=== PATIENT | female | born 1955 | race Caucasian/White ===

== ENCOUNTER 2017-01-30 10:45 | Emergency (ER) | payer BC ==
[2017-01-30] MEDS ORDERED: SODIUM CHLORIDE 1,000 ML IV STA (10:49)
[2017-01-30] MEDS ORDERED: ONDANSETRON 4 MG/2 ML VIAL IVPUSH ONE (10:49)
--- NOTE | 2017-01-30 10:55 | PDOC ---
History of Present Illness - General Chief Complaint: Nausea/Vomiting Stated Complaint: n/v/d headache Time Seen by Provider: 01/30/17 10:48 History Source: Patient Exam Limitations: No Limitations - History of Present Illness Initial Comments: 01/30/17 10:51 61 y/o female with headache and vomiting today. Recently diagnosed with Farfan's Palsy 1 1/2 weeks ago and placed on Neurontin. Today increase rigth sided headache and vomiting. Mild diarrhea. No fall or trauma. The burning sensation on right side got better from the Neurontin. Has seen Neurologist Dr. Cook and also treated fro tic bite in September with antibiotics. No neck pain, back pain or weakness. No blurred vision or speech change. Timing/Duration: constant Severity: mild Associated Symptoms: reports: headaches, nausea/vomiting NIH Stroke Scale - Initial Evaluation Level of consciousness: Alert Ask patient the month and their age: Answers both correctly Ask patient to open & close eyes; make fist and let go: Obeys both correctly Best gaze (horizontal eye movement): Normal Visual field testing: No visual field loss Facial paresis (Show teeth/raise eyebrows/close eyes tight): Normal symmetrical movement Motor Function: Left Arm: Normal Motor Function: Right Arm: Normal (extends arm 90 (or 45) degrees for 10 seconds without drift Motor Function: Left Leg: Normal (extends leg 30 degrees for 5 seconds without drift) Motor Function: Right Leg: Normal (extends leg 30 degrees for 5 seconds without drift) Limb Ataxia: No ataxia Sensory(Use pinprick test arms,legs,trunk,face/side to side): Normal Best language (Describe picture, name items, read sentences): No Aphasia Dysarthria (read several words): Normal articulation Extinction and Inattention: No abnormality - Total Score NIH Stroke Scale Score: 0 Past History - Past Medical History Allergies/Adverse Reactions: Allergies Allergy/AdvReac Type Severity Reaction Status Date / Time latex Allergy Itching Verified 01/30/17 11:02 papaya [Papaya] Allergy Itching Verified 01/30/17 11:02 Penicillins Allergy Rash Verified 01/30/17 11:02 sulfamethoxazole Allergy Hives Verified 01/30/17 11:02 [From Bactrim] trimethoprim [From Bactrim] Allergy Hives Verified 01/30/17 11:02 Home Medications: Ambulatory Orders Aspirin [Aspirin EC] 81 mg PO DAILY 03/18/15 Levothyroxine [Synthroid -] 75 mcg PO DAILY 03/18/15 Cholecalciferol (Vitamin D3) [Vitamin D3 -] 1,000 unit PO DAILY 09/23/15 [place]-3/Dha/Epa/Fish Oil [Fish Oil 500 mg Softgel] 1 each PO DAILY 09/23/15 Cyanocobalamin [Vitamin B12 -] 100 mcg PO DAILY 01/30/17 Gabapentin [Neurontin -] 200 mg PO HS 01/30/17 Hyoscyamine Sulfate 0.125 mg PO TID 01/30/17 Pravastatin Sodium [Pravachol (Nf)] 20 mg PO HS 01/30/17 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) Hypercholesterolemia: Yes Thyroid Disease: Yes - Surgical History Abdominal Surgery: Yes (UMBILICAL HERNIA) - Suicide/Smoking/Psychosocial Hx Smoking Status: No Smoking History: Never smoked Number of Cigarettes Smoked Daily: 0 Hx Alcohol Use: Yes (RARE) Drug/Substance Use Hx: No Substance Use Type: None Review of Systems - Review of Systems Able to Perform ROS?: Yes Is the patient limited [place] proficient: No Constitutional: No: Chills, Fever HEENTM: No: Blurred Vision Respiratory: No: Shortness of Breath Cardiac (ROS): No: Chest Pain, Irregular Heart Rate ABD/GI: Yes: Diarrhea, Nausea, Vomiting : No: Burning, Dysuria Musculoskeletal: No: Back Pain, Joint Pain, Neck Pain Integumentary: No: Pruritus, Rash Neurological: Yes: Headache. No: Numbness, Paresthesia, Ataxia All Other Systems: Reviewed and Negative *Physical Exam - Physical Exam General Appearance: Yes: Nourished, Appropriately Dressed, Mild Distress. No: Apparent Distress HEENT: positive: EOMI, FADY, Normal ENT Inspection, Normal Voice, Pharynx Normal Neck: positive: Trachea midline, Normal Thyroid, Supple. negative: Tender, Rigid Respiratory/Chest: positive: Lungs Clear, Normal Breath Sounds. negative: Chest Tender, Respiratory Distress Cardiovascular: positive: Regular Rhythm, Regular Rate, S1, S2. negative: Edema , JVD, Murmur Vascular Pulses: Femoral (R): 4+, Femoral (L): 4+, Carotid (R): 4+, Carotid (L) : 4+, Dorsalis-Pedis (R): 4+, Doralis-Pedis (L): 4+ Gastrointestinal/Abdominal: positive: Normal Bowel Sounds, Flat, Soft. negative : Tender, Organomegaly, Pulsatile Mass Lymphatic: negative: Adenopathy, Tenderness, Other Musculoskeletal: positive: Normal Inspection. negative: CVA Tenderness Extremity: positive: Normal Capillary Refill, Normal Inspection, Normal Range of Motion, Tender. negative: Swelling Integumentary: positive: Normal Color, Dry, Warm Neurologic: positive: machine tool mechanic II-XII NML intact, Fully Oriented, Alert, Normal Mood/ Affect (strength 5+/5 b/l in UE adn LE, no focal deficits noted), Normal Response, Motor Strength 5/5 ED Treatment Course - LABORATORY CBC & Chemistry Diagram: 01/30/17 11:22 01/30/17 11:22 - ADDITIONAL ORDERS Additional order review: 01/30/17 10:55 Patient with recent diagnosis by Neurologist with Farfan's Palsy, now with right sided headache and vomiting. May be related to Neurontin, however pt never had a CT head done as per patient, will obtain labs, CT head and place on fluids. 01/30/17 12:55 Pt is feeling much better, headache has resolved and no vomiting Labs normal. CT head: negative for bleed. Attempted to call patient's neurologist Dr. Gabino Prasad, no return call. Will have pt follow up, if worsen return to ER 01/30/17 12:57 Advised pt to hold off on taking Neurontin, if having possible side effect. 01/30/17 13:08 Repeat Neuro exam at 1300 strength 5+/5 b/l in UE and LE, no focal deficits noted - RADIOLOGY Radiology Studies Ordered: Category Date Time Status HEAD CT WITHOUT CONTRAST [CT] Stat CT Scan 01/30/17 10:49 Ordered *DC/Admit/Observation/Transfer Diagnosis at time of Disposition: Headache Qualifiers: Headache type: other drug induced headache Intractability: not intractable Qualified Code(s): G44.40 - Drug-induced headache, not elsewhere classified, not intractable - Discharge Dispostion Disposition: HOME Condition at time of disposition: Improved Admit: No - Patient Instructions Printed Discharge Instructions: DI for Headache Additional Instructions: Hold Neurontin Follow up with your Neurologist on 02/06 If worsen return to ER
[2017-01-30 11:01] VITALS: BP 118/64; PULSE 73; TEMP 97.6; BMI 23.4
[2017-01-30] MEDS ORDERED: ACETAMINOPHEN 1000 MG/100 ML VIAL (NON FORMULARY) IVPB ONE (11:10)
[2017-01-30] MEDS ORDERED: ONDANSETRON 4 MG/2 ML VIAL ONE (11:15)
[2017-01-30] MEDS ORDERED: ACETAMINOPHEN INJECTION 100 ML IVPB ONE (11:15)
[2017-01-30 11:30] LABS: EOSINOPHIL 0.4 % (0-4.5)
[2017-01-30 11:33] LABS: BASOPHIL 0.7 % (0-2.0); MCH 29.8 pg (25.7-33.7); MCHC 33.8 g/dl (32.0-36.0); MEAN CELL VOLUME 88.1 fl (80-96); MEAN PLT VOLUME 8.5 fl (7.5-11.1); NEUTROPHILS 82.4 % (42.8-82.8); PLATELET COUNT 345 K/MM3 (134-434); RDW 12.9 % (11.6-15.6); WHITE BLOOD COUNT 8.1 K/mm3 (4.0-10.8)
[2017-01-30 11:53] LABS: ALBUMIN 4.5 g/dl (3.5-5.0); ALK PHOS 108 U/L (32-92); ANION GAP 8 (8-16); BILIRUBIN,TOTAL 0.5 mg/dl (0.2-1.0); CALCIUM 9.8 mg/dl (8.4-10.2); CO2 22 mmol/L (22-28); CREATININE 0.7 mg/dl (0.6-1.3); GLUCOSE,RANDOM 128 mg/dl (74-106); SGOT/AST 24 U/L (10-42); SGPT/ALT 20 U/L (10-40); TOT PROT 7.6 g/dl (6.4-8.3)
== END 2017-01-30 13:10 | disposition home or self-care (01) ==
LOC: FER 10:45
PROC: 3E033NZ Introduction of Analgesics, Hypnotics, Sedatives into Peripheral Vein, Percutaneous Approach (ICD-10-PCS; principal; 2017-01-30)
PROC: 3E033GC Introduction of Other Therapeutic Substance into Peripheral Vein, Percutaneous Approach (ICD-10-PCS; 2017-01-30)
PROC: 3E0337Z Introduction of Electrolytic and Water Balance Substance into Peripheral Vein, Percutaneous Approach (ICD-10-PCS; 2017-01-30)
DX: G44.40 Drug-induced headache, not elsewhere classified, not intractable (principal); G51.0 Bell's palsy; E78.00 Pure hypercholesterolemia, unspecified; E07.9 Disorder of thyroid, unspecified; R00.0 Tachycardia, unspecified
CPT/HCPCS: 36415; 70450-TC; 80053; 83690; 85025; 99282-25

== ENCOUNTER 2022-10-07 20:57 | Emergency (ER) | payer OTHER, BC ==
[2022-10-07 21:05] VITALS: BP 145/85; PULSE 72; RESP 16; TEMP 98.3; BMI 23.8
[2022-10-07] MEDS ORDERED: KETOROLAC TROMETHAMINE 30 MG/1 ML VIAL IVPUSH ONE (21:25)
[2022-10-07] MEDS ORDERED: KETOROLAC TROMETHAMINE 30 MG/1 ML VIAL ONE (21:27)
[2022-10-07] MEDS ORDERED: NAPROXEN 500 MG TABLET PO ONE (21:31)
[2022-10-07] MEDS ORDERED: NAPROXEN 500 MG TABLET ONE (21:33)
[2022-10-07 21:53] LABS: HEMATOCRIT 40.7 % (32.4-45.2); HEMOGLOBIN 13.8 G/dL (10.7-15.3); MCH 30.6 pg (25.7-33.7); MCHC 33.9 g/dl (32.0-36.0); MEAN CELL VOLUME 90.4 fl (80-96); PLATELET COUNT 291.4 10^3/uL (134-434); RDW 14.8 % (11.6-15.6); WHITE BLOOD COUNT 6.9 10^3/uL (4.0-10.8)
[2022-10-07 22:14] LABS: ALBUMIN 4.5 g/dl (3.4-5.0); BILIRUBIN,TOTAL 0.4 mg/dl (0.2-1); BLOOD UREA NITROGEN 15.8 mg/dl (7-18); CALCIUM 10.4 mg/dl (8.5-10.1); CREATININE 0.9 mg/dl (0.6-1.3); SGOT/AST 19.3 U/L (15-37); SGPT/ALT 17.2 U/L (7-52)
== END 2022-10-07 23:22 | disposition home or self-care (01) ==
LOC: FER 20:57
DX: R07.0 Pain in throat (principal); M54.2 Cervicalgia
CPT/HCPCS: 36415; 80053; 84443; 85027; 99283-25